=== PATIENT | male | born 1950 | race Caucasian/White ===

== ENCOUNTER 2020-01-06 19:22 | Emergency (ER) | payer SELFPAY ==
[~2020-01-06] VITALS: Ht 175.3 cm; Wt 81.6 kg
--- NOTE | 2020-01-06 19:36 | NUR ---
PATIENT CAME TO ER BED 3 BIB RA FROM THE STREETS C/O VOMITING OUT BLOOD SINCE TODAY. PATIENT STATES THAT HE HAS A HX OF GASTRITIS. AAOX4. NO SOB. BREATHING EVENLY AND UNLABORED ON ROOM AIR. CONNECTED TO MONITOR.
--- NOTE | 2020-01-06 19:42 | NUR ---
AT BEDSIDE FOR EVALUATION.
[2020-01-06] MEDS ORDERED: ONDANSETRON HCL/PF - ER 4 MG/2 ML VIAL IV ONE (20:00)
[2020-01-06] MEDS ORDERED: PANTOPRAZOLE 40 MG VIAL IV ONE (20:00)
[2020-01-06 20:07] LABS: BASOPHILS % (AUTO) 0.2 % (0.0-2.0); EOSINOPHILS % (AUTO) 0.5 % (0.0-6.0); HEMATOCRIT 46 % (39-51); LYMPHOCYTES # (AUTO) 0.9 /CMM (0.8-4.8); LYMPHOCYTES % (AUTO) 6.8 % (20.0-44.0); MEAN CORPUSCULAR HGB CONC 32 g/dl (31.0-36.0); MEAN CORPUSCULAR VOLUME 92 fL (80-96); NEUTROPHILS # (AUTO) 10.7 /CMM (1.8-8.9); NEUTROPHILS % (AUTO) 84.5 % (43.0-81.0); PLATELET COUNT (AUTO) 238 /CMM (150-450); WHITE BLOOD COUNT (AUTO) 12.6 K/uL (4.3-11.0)
[2020-01-06 20:18] LABS: CALCIUM, SERUM 8.9 mg/dL (8.5-10.1); CARBON DIOXIDE 20 mmol/L (21-32); CHLORIDE 100 mmol/L (98-107); CREATININE 1.6 mg/dL (0.6-1.3); GLUCOSE 72 mg/dL (74-106); SODIUM SERUM 138 mmol/L (136-145); UREA NITROGEN, BLOOD 20 mg/dL (7-18)
[2020-01-06] MEDS ORDERED: ONDANSETRON HCL/PF 4 MG/2 ML VIAL ONE (20:19)
[2020-01-06] MEDS ORDERED: PANTOPRAZOLE 40 MG VIAL ONE (20:19)
--- NOTE | 2020-01-06 20:20 | NUR ---
US AT BEDSIDE.
[2020-01-06 20:29] LABS: ALANINE AMINOTRANSFERASE 60 U/L (12-78); ALBUMIN 4.1 g/dL (3.4-5.0); ALKALINE PHOSPHATASE 139 U/L (46-116); ASPARTATE AMINOTRANSFERASE 53 U/L (15-37); BILIRUBIN,DIRECT 0.1 mg/dL (0.0-0.2); BILIRUBIN,TOTAL 0.4 mg/dL (0.2-1.0); LIPASE 32 U/L (73-393); TOTAL PROTEIN, SERUM 7.5 g/dL (6.4-8.2)
--- NOTE | 2020-01-06 20:32 | NUR ---
UNABLE TO START IV LINE
--- NOTE | 2020-01-06 20:39 | NUR ---
OTHER NURSING STAFF UNABLE TO START IV LINE, NOTIFIED. STATES MEDICATION ORDERS WILL CHANGE TO PO.
[2020-01-06] MEDS ORDERED: MAG HYDROX/AL HYDROX/SIMETH 30 ML UDC PO ONE (21:00)
[2020-01-06] MEDS ORDERED: LIDOCAINE VISCOUS 2% UD 15 ML UDC MM ONE (21:00)
[2020-01-06] MEDS ORDERED: ONDANSETRON 4 MG TAB.RAPDIS SL ONE (21:00)
[2020-01-06] MEDS ORDERED: MAG HYDROX/AL HYDROX/SIMETH 30 ML UDC ONE (21:03)
[2020-01-06] MEDS ORDERED: LIDOCAINE VISCOUS 2% UD 15 ML UDC ONE (21:03)
[2020-01-06] MEDS ORDERED: ONDANSETRON 4 MG TAB.RAPDIS ONE (21:04)
--- NOTE | 2020-01-06 21:13 | NUR ---
PATIENT TAKEN TO CT
--- NOTE | 2020-01-06 21:34 | NUR ---
PATIENT UNABLE TO PROVIDE URINE, NOTIFIED.
[2020-01-06] MEDS ORDERED: PANTOPRAZOLE 40 MG TABLET.DR PO ONE (22:25)
[2020-01-06] MEDS ORDERED: MORPHINE SULFATE INJ 2 MG/ML DISP.SYRIN IM ONE (22:30)
[2020-01-06] MEDS ORDERED: MORPHINE SULFATE INJ 2 MG/ML DISP.SYRIN ONE (22:31)
[2020-01-06 22:35] LABS: APPEARANCE,URINE Clear (CLEAR); BILIRUBIN,URINE Negative (NEGATIVE); BLOOD, URINE Small Ery/uL (NEGATIVE); COLOR,URINE Yellow (YELLOW); KETONES,URINE 40 (NEGATIVE); LEUKOCYTE ESTERASE ,URINE Negative (NEGATIVE); NITRITE, URINE Negative (NEGATIVE); PH,URINE 5.5 (5.0-8.0); PROTEIN,URINE Negative (NEGATIVE); UGLUCOSE Negative (NEGATIVE); UROBILINOGEN,URINE 0.2 EU/dL (0.2)
[2020-01-06 22:37] VITALS: BP 124/78
--- NOTE | 2020-01-06 22:38 | NUR ---
Patient discharged to home in stable condition. Written and verbal after care instructions given. Patient verbalizes understanding of instruction.
--- NOTE | 2020-01-06 22:38 | NUR ---
PATIENT INSTRUCTED NOT TO DRIVE. PATIENT IS AMBULATORY WITH A STEADY GAIT.
[2020-01-06 23:08] LABS: BACTERIA,URINE Few /HPF (None Seen); SQUAMOUS EPITHELIAL CELL,UR Rare /HPF (None Seen); WBC,URINE 0-2 /HPF (0-3)
== END 2020-01-06 22:38 | disposition home or self-care (01) ==
LOC: ER 19:25
DX: R10.13 Epigastric pain (principal); K76.0 Fatty (change of) liver, not elsewhere classified; J45.909 Unspecified asthma, uncomplicated; I10 Essential (primary) hypertension
CPT/HCPCS: 36415; 71045; 74176; 76705; 80048; 80076; 80305; 81001; 83690; 84484; 85025; 93005; 96372; 99285; C9113; J2270; J2405 ×2; Q0162; 81000-TC